=== PATIENT | female | born 1945 | race Caucasian/White ===

== ENCOUNTER → 2016-03-16 | Outpatient (CLI) | payer MEDICARE ==
--- NOTE | 2016-03-16 12:03 | MR ---
EXAMINATION TYPE: MR cervical spine wo con DATE OF EXAM: 03/16/2016 11:36 AM COMPARISON: NONE HISTORY: Cervical spondylosis, neck pain x 8 years, pain/weakness in arms and fingers. TECHNIQUE: Multiplanar, multisequence images of the cervical spine were acquired. C2-C3: No evidence for degenerative disc disease. No disc bulge/herniation or protrusion. No Canal stenosis. Foramina are patent bilaterally. C3-C4: Central disc bulging with mild degenerative disc disease and facet arthropathy. Mild bilateral foraminal encroachment. C4-C5: Severe degenerative disc disease with complete loss of disc space posterior broad-based disc b ulging catheter by spur. There is a mild canal stenosis and bilateral foraminal encroachment greater on the left with severe changes noted. There is facet arthropathy. Findings stable. C5-C6: Severe degenerative disc disease disc bulging catheter by spur. There is impression upon the a nterior margin of the spinal cord and severe canal stenosis and severe bilateral foraminal encroachme nt greater on the right. C6-C7: Severe degenerative disc disease with complete loss of disc space. Disc bulging catheter by sp ur is noted with moderate bilateral foraminal encroachment. Borderline canal stenosis. C7-T1: No evidence for degenerative disc disease. No disc bulge/herniation or protrusion. No Canal stenosis. Foramina are patent bilaterally. Cervical segments are intact. There is 2.5 mm retrolisthesis C5 relative to C4.. Cervical spinal co rd is of normal signal. Craniovertebral junction relationships are within normal limits. IMPRESSION: Stable severe multilevel degenerative disc disease primarily involving levels C4-C7. Most marked find ings are at C4-5 and C5-C6 with significant canal stenosis and foraminal encroachment secondary to di sc bulging or protrusions capped by spurring and hypertrophic changes. Overall findings appear to be stable. There is compression of the anterior margin of the spinal cord at both C4-5 and C5-C6.
== END | disposition home or self-care (01) ==
LOC: RADMRIMAIN 11:00
PROVIDERS: ATTEND Psychiatry & Neurology Neurology
DX: M48.02 Spinal stenosis, cervical region (principal); M50.21 Other cervical disc displacement, high cervical region; M50.321 Other cervical disc degeneration at C4-C5 level; G95.20 Unspecified cord compression
CPT/HCPCS: 72141